=== PATIENT | male | born 1935 | race Hispanic/Latino ===

== ENCOUNTER 2018-11-26 12:17 | Outpatient (CLI) | payer MEDICARE | END 2018-11-26 12:18 | disposition home or self-care (01) | LOC: C.LAB 12:17 ==

== ENCOUNTER 2018-12-05 14:38 | Outpatient (CLI) | payer MEDICARE | END 2018-12-05 14:39 | disposition home or self-care (01) | LOC: C.CTH 14:39 | DX: I73.9 Peripheral vascular disease, unspecified (principal) ==

== ENCOUNTER 2018-12-06 10:20 | Outpatient (CLI) | payer MEDICARE | END 2018-12-06 10:21 | disposition home or self-care (01) | LOC: C.CARD 10:20 ==

== ENCOUNTER 2018-12-17 11:26 | Outpatient (CLI) | payer MEDICARE | END 2018-12-17 11:27 | disposition home or self-care (01) | LOC: C.LAB 11:26 | DX: I10 Essential (primary) hypertension (principal); E78.00 Pure hypercholesterolemia, unspecified; Z95.2 Presence of prosthetic heart valve; I25.9 Chronic ischemic heart disease, unspecified; R05 Cough; R07.0 Pain in throat; R50.81 Fever presenting with conditions classified elsewhere ==